=== PATIENT | female | born 1965 | race Caucasian/White ===

== ENCOUNTER 2018-11-19 10:59 | Emergency (ER) | payer SELFPAY ==
[~2018-11-19] VITALS: Ht 167.6 cm; Wt 111.7 kg
[2018-11-19 11:17] VITALS: BP 133/85
[2018-11-19] MEDS ORDERED: GABA-587 PO (11:26)
[2018-11-19] MEDS ORDERED: QUET100T4 PO (11:26)
[2018-11-19] MEDS ORDERED: QUET50TA5 PO (11:26)
--- NOTE | 2018-11-19 11:30 | PHYS DOC ---
Past History Past Medical History: Anxiety, Depression, GERD, Other Past Surgical History: Hysterectomy Alcohol Use: None Drug Use: None Adult General Chief Complaint Chief Complaint: MEDICATION REFILL HPI HPI 53-year-old female presents for medication refill. 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 She has moved here to be closer to her daughter who just had a premature baby. She has not established a permanent residence yet. Her current psychiatrist is in [place] and has refused to refill her medications. She did get 30 day supply prior to leaving, but has been unable to establish with someone in time for refill. She was informed of the guidance [facility] urine [place] and intends to establish with them today. Patient tells me that she is out of her Neurontin and her Seroquel. She has been stable on her current doses for some time. She has no other complaints. Review of Systems Review of Systems Constitutional: Denies fever or chills [] Eyes: Denies change in visual acuity, redness, or eye pain [] HENT: Denies nasal congestion or sore throat [] Respiratory: Denies cough or shortness of breath [] Cardiovascular: No additional information not addressed in HPI [] GI: Denies abdominal pain, nausea, vomiting, bloody stools or diarrhea [] : Denies dysuria or hematuria [] Musculoskeletal: Denies back pain or joint pain [] Integument: Denies rash or skin lesions [] Neurologic: Denies headache, focal weakness or sensory changes [] Endocrine: Denies polyuria or polydipsia [] All other systems were reviewed and found to be within normal limits, except as documented in this note. Allergies Allergies Allergies Coded Allergies Type Severity Reaction Last Updated Verified No Known Drug Allergies 11/19/18 No Physical Exam Physical Exam Constitutional: Well developed, well nourished, no acute distress, non-toxic appearance. [] HENT: Normocephalic, atraumatic, bilateral external ears normal, oropharynx mo ist, no oral exudates, nose normal. [] Eyes: PERRLA, EOMI, conjunctiva normal, no discharge. [] Neck: Normal range of motion, no tenderness, supple, no stridor. [] Cardiovascular:Heart rate regular rhythm, no murmur [] Lungs & Thorax: Bilateral breath sounds clear to auscultation [] Abdomen: Bowel sounds normal, soft, no tenderness, no masses, no pulsatile masses. [] Skin: Warm, dry, no erythema, no rash. [] Back: No tenderness, no CVA tenderness. [] Extremities: No tenderness, no cyanosis, no clubbing, ROM intact, no edema. [] Neurologic: Alert and oriented X 3, normal motor function, normal sensory function, no focal deficits noted. [] Psychologic: Affect normal, judgement normal, mood normal. [] Current Patient Data Vital Signs Vital Signs Date Time Temp Pulse Resp B/P (MAP) Pulse Ox O2 Delivery O2 Flow Rate FiO2 11/19/18 11:17 98.8 80 18 96 Room Air EKG EKG [] Radiology/Procedures Radiology/Procedures [] Course & Med Decision Making Course & Med Decision Making Pertinent Labs and Imaging studies reviewed. (See chart for details) The patient appears to be reliable. I do not doubt that she has been unable to get into someone in a short period of time. I do not want her to run out of these medications as the consequences of withdrawal and lack of treatment are likely higher than the risk of refilling them. I will refill her Neurontin 400 mg 3 times a day as well as her Seroquel 50 twice a day and 100 at night. She is stable for discharge at this time. [] Dragon Disclaimer Dragon Disclaimer This electronic medical record was generated, in whole or in part, using a voice recognition dictation system. Departure Departure: Impression: Primary Impression: Medication refill Disposition: HOME, SELF-CARE Condition: STABLE Referrals: PCP,NO (PCP) Scripts Gabapentin (NEURONTIN ) 400 Mg Capsule 400 MG PO TID for NEUROGENIC PAIN for 30 Days, #90 CAP Prov: JAIME TONY DO 11/19/18 Quetiapine Fumarate (SEROQUEL) 50 Mg Tablet 1 TAB PO BID for behavioral health for 30 Days, #60 TAB 2 Refills Prov: JAIME TONY DO 11/19/18 Quetiapine Fumarate (SEROQUEL) 100 Mg Tablet 1 TAB PO QHS for behavioral health, #30 TAB 0 Refills Prov: JAIME TONY DO 11/19/18 JAIME TONY DO November 19, 2018 11:30
== END 2018-11-19 11:34 | disposition home or self-care (01) ==
LOC: ER 10:59
DX: F41.9 Anxiety disorder, unspecified (principal); Z76.0 Encounter for issue of repeat prescription; F32.9 Major depressive disorder, single episode, unspecified; K21.9 Gastro-esophageal reflux disease without esophagitis
CPT/HCPCS: 99283